=== PATIENT | female | born 1975 | race African-American/Black ===

== ENCOUNTER 2016-09-25 12:59 | Emergency (ER) | payer OTHER ==
[~2016-09-25] VITALS: Ht 170.2 cm; Wt 104.3 kg
[2016-09-25 13:45] LABS: URINE BILIRUBIN NEGATIVE (Negative); URINE BLOOD TRACE (Negative); URINE COLOR YELLOW; URINE GLUCOSE-RANDOM* NEGATIVE (Negative); URINE KETONES NEGATIVE (Negative); URINE LEUKOCYTES-REFLEX NEGATIVE (Negative); URINE PROTEIN (DIPSTICK) TRACE (Negative)
[2016-09-25 14:25] LABS: ABSOLUTE NEUTROPHILS 8.6 thou/uL (1.4-8.2); BASOPHILS 0.5 % (0.0-2.0); HEMATOCRIT 37.8 % (37.0-47.0); HEMOGLOBIN 12.5 gm/dL (12.0-15.0); LYMPHOCYTES 21.5 % (24.0-44.0); MCH 28.4 pg (26.0-34.0); MCV 86.1 fL (80.0-100.0); MONOCYTES 6.1 % (1.0-8.0); PLATELET COUNT 255 thou/uL (150-400); POLYS 70.9 % (36.0-66.0); RDW 18.2 % (10.5-14.5); WBC 12.1 thou/uL (4.0-11.0)
[2016-09-25 14:27] LABS: MANUAL DIFF NO
[2016-09-25 14:36] LABS: CALCIUM 8.9 mg/dL (8.5-10.1); CREATININE 0.8 mg/dL (0.6-1.0); POTASSIUM 3.9 mmol/L (3.5-5.1)
[2016-09-25 14:40] LABS: ALBUMIN 3.7 g/dL (3.4-5.0); TOTAL BILIRUBIN 0.4 mg/dL (<0.1-1.0); TOTAL PROTEIN 8.2 g/dL (6.4-8.2)
[2016-09-25] MEDS ORDERED: TYLENOL PM EX-1 EACH PO (14:51)
[2016-09-25] MEDS ORDERED: NORCO 5-325 TA1 EACH PO (15:18)
[2016-09-25] MEDS ORDERED: FLAGYL500 MG PO (15:18)
[2016-09-25] MEDS ORDERED: CIPRO500 MG PO (15:18)
[2016-09-25 15:46] VITALS: BP 129/73
== END 2016-09-25 15:46 | disposition home or self-care (01) ==
LOC: ER 12:59
PROVIDERS: Emergency Medicine
DX: I10 Essential (primary) hypertension (principal); F17.210 Nicotine dependence, cigarettes, uncomplicated